=== PATIENT | female | born 1995 ===

== ENCOUNTER → 2019-10-13 | Outpatient (CLI) | payer OTHER | END | disposition home or self-care (01) | LOC: LAB 14:41 → LAB SHORT 14:41 | DX: N80.9 Endometriosis, unspecified (principal); N92.6 Irregular menstruation, unspecified; R53.83 Other fatigue | CPT/HCPCS: 84702 ==

== ENCOUNTER → 2020-02-22 | Outpatient (CLI) | payer OTHER | END | disposition home or self-care (01) | LOC: LAB 09:22 → LAB SHORT 09:22 | DX: N92.6 Irregular menstruation, unspecified (principal); N80.9 Endometriosis, unspecified; R53.83 Other fatigue; Z32.01 Encounter for pregnancy test, result positive | CPT/HCPCS: 81025 ==

== ENCOUNTER → 2020-02-24 | Outpatient (CLI) | payer OTHER | LOC: LAB 10:38 → LAB SHORT 10:38 | DX: Z32.01 Encounter for pregnancy test, result positive (principal); R53.83 Other fatigue | CPT/HCPCS: 84702 ==

== ENCOUNTER → 2020-02-29 | Outpatient (CLI) | payer OTHER | END | disposition home or self-care (01) | LOC: LAB SHORT 11:00 → LAB 11:00 | DX: Z32.01 Encounter for pregnancy test, result positive (principal); R53.83 Other fatigue | CPT/HCPCS: 84702 ==

== ENCOUNTER → 2020-03-30 | Outpatient (CLI) | payer OTHER ==
[2020-03-31 16:22] LABS: CORONAVIRUS (COVID19) CSH-NRL Negative (Negative)
== END ==
LOC: LAB SHORT 12:24
PROVIDERS: Family Medicine
DX: J06.9 Acute upper respiratory infection, unspecified (principal); Z20.828 Contact with and (suspected) exposure to other viral communicable diseases
CPT/HCPCS: U0003

== ENCOUNTER → 2020-04-03 | Outpatient (CLI) | payer OTHER | END | disposition home or self-care (01) | LOC: LAB 13:58 → LAB SHORT 13:58 | DX: Z01.419 Encounter for gynecological examination (general) (routine) without abnormal findings (principal); Z13.6 Encounter for screening for cardiovascular disorders; Z13.220 Encounter for screening for lipoid disorders; Z13.228 Encounter for screening for other metabolic disorders; Z13.89 Encounter for screening for other disorder; Z68.26 Body mass index [BMI] 26.0-26.9, adult; Z32.01 Encounter for pregnancy test, result positive; Z71.2 Person consulting for explanation of examination or test findings | CPT/HCPCS: 84702 ==

== ENCOUNTER → 2020-04-26 | Outpatient (CLI) | payer BC, OTHER | END | disposition home or self-care (01) | LOC: LAB SHORT 07:49 → LAB 07:49 | DX: Z32.01 Encounter for pregnancy test, result positive (principal); Z71.2 Person consulting for explanation of examination or test findings; Z68.26 Body mass index [BMI] 26.0-26.9, adult | CPT/HCPCS: 84702 ==

== ENCOUNTER → 2020-04-27 | Outpatient (CLI) | payer BC, OTHER | END | disposition home or self-care (01) | LOC: LAB SHORT 07:00 → LAB 07:00 | DX: Z32.01 Encounter for pregnancy test, result positive (principal); Z71.2 Person consulting for explanation of examination or test findings; Z68.26 Body mass index [BMI] 26.0-26.9, adult | CPT/HCPCS: 84702 ==

== ENCOUNTER → 2020-05-02 | Outpatient (CLI) | payer BC, OTHER | END | disposition home or self-care (01) | LOC: LAB 10:59 → LAB SHORT 10:59 | DX: Z01.419 Encounter for gynecological examination (general) (routine) without abnormal findings (principal); Z13.220 Encounter for screening for lipoid disorders; Z13.6 Encounter for screening for cardiovascular disorders; Z13.228 Encounter for screening for other metabolic disorders; Z13.89 Encounter for screening for other disorder; Z71.2 Person consulting for explanation of examination or test findings | CPT/HCPCS: 84702 ==

== ENCOUNTER → 2020-11-15 | Outpatient (CLI) | payer BC, OTHER ==
[2020-11-15 20:03] LABS: Creatinine Urine 57.7 mg/dL (27.00-270.00); Protein, Urine Quantitative 13.8 mg/dL (0.0-11.9)
== END | disposition home or self-care (01) ==
LOC: LAB SHORT 17:55 → LAB 17:55
PROVIDERS: Nurse Practitioner Obstetrics & Gynecology
DX: O13.3 Gestational [pregnancy-induced] hypertension without significant proteinuria, third trimester (principal)
CPT/HCPCS: 82570; 84156